=== PATIENT | female | born 1940 | race Caucasian/White ===

== ENCOUNTER 2019-01-30 11:01 | Observation (INO) | payer MEDICARE, OTHER ==
[2019-01-30] MEDS ORDERED: solu-MEDROL 125 MG IV ONE (11:21)
[2019-01-30] MEDS ORDERED: TYLENOL EXTRA STRENGTH 500 MG PO STA (11:21)
--- NOTE | 2019-01-30 11:24 | ERPHSYRPT ---
- History of Present Illness Time Seen by Provider: 01/30/19 11:22 Source: patient Physician History: mild to mod right hip and lower back pain ache constant since tuesday by accident, o/w no injury, no incont, no abdominal pain, no fever Allergies/Adverse Reactions: No Known Drug Allergies Allergy (Verified 01/30/19 11:22) Home Medications: Hydrocodone/APAP 5/500 mg [Vicodin 5/500 MG] 5 mg PO Q4HPRN PRN 03/31/12 [ History] Dorzolamide HCl/Timolol Maleat [Dorzolamide-Timolol Eye Drops] 1 drop OP DAILY 01/30/19 [History] Latanoprost 1 drops OP DAILY 01/30/19 [History] Omeprazole 20 mg PO DAILY 01/30/19 [History] Prednisone 20 mg [Deltasone 20 mg] 20 mg PO DAILY 01/30/19 [History] - Review of Systems Constitutional: No Fever Eyes: No Vision Changes Ears, Nose, & Throat: No Mouth Pain Respiratory: No Dyspnea Cardiac: No Chest Pain Abdominal/Gastrointestinal: No Abdominal Pain Genitourinary Symptoms: No Dysuria, No Incontinence Musculoskeletal: Back Pain, Joint Pain, No Neck Pain Skin: No Skin Lesions Neurological: No Dizziness - Past Medical History Pertinent Past Medical History: Yes Neurological History: No Pertinent History Cardiac History: Hypertension Respiratory History: No Pertinent History Endocrine Medical History: No Pertinent History Musculoskeletal History: Arthritis GI Medical History: GERD Other Medical History: NONE NOTED OTHER THAN OA - Past Surgical History Past Surgical History: Yes Other Surgical History: TONSILECTOMY - Social History Smoking Status: Former smoker Exposure to second hand smoke: No Drug Use: none Patient Lives Alone: No - Nursing Vital Signs Nursing Vital Signs: Initial Vital Signs Temperature 98.4 F 01/30/19 11:10 Pulse Rate 82 01/30/19 11:10 Respiratory Rate 16 01/30/19 11:10 Blood Pressure 156/76 01/30/19 11:10 O2 Sat by Pulse Oximetry 92 L 01/30/19 11:10 Pain Scale Pain Intensity 4 - Physical Exam General Appearance: no apparent distress Eye Exam: eyes nml inspection Neck Exam: normal inspection Respiratory Exam: No respiratory distress Cardiovascular Exam: regular rate/rhythm Gastrointestinal Exam: soft, No tenderness Back Exam: other (tender right hip and paralumbar back, kaur), No vertebral tenderness Extremity Exam: pelvis stable Neurologic Exam: alert, oriented x 3, cooperative Skin Exam: normal color, warm, dry - Course Nursing assessment & vital signs reviewed: Yes - Radiology Exams Hip X-ray Interpretation: Discussed w/ radiologist, No Fracture - CT Exams Lumbar Spine CT Interpretation: Discussed w/radiologist, Other (redemonstates nondispl L4 fx) Ordered Tests: Active Orders 24 hr Category Date Time Status HIP UNI (2V) INCL PEL IF DONE Stat Exams 01/30/19 12:04 Completed LUMBAR SPINE W/O [CT] Stat Exams 01/30/19 11:21 Completed Medication Summary Discontinued Medications Generic Name Dose Route Start Last Admin Trade Name Freq PRN Reason Stop Dose Admin Acetaminophen 500 mg 01/30/19 11:21 01/30/19 12:14 Tylenol Extra Strength 500 Mg PO 01/30/19 11:22 500 mg STAT STA Administration Acetaminophen Confirm 01/30/19 11:40 Tylenol Extra Strength 500 Mg Administered 01/30/19 11:41 Dose 1,000 mg .ROUTE .STK-MED ONE Methylprednisolone Sodium Succinate 125 mg 01/30/19 11:21 01/30/19 12:15 Solu-Medrol 125 Mg IV 01/30/19 11:22 125 mg STAT ONE Administration Methylprednisolone Sodium Succinate Confirm 01/30/19 11:39 Solu-Medrol 125 Mg Administered 01/30/19 11:40 Dose 125 mg .ROUTE .STK-MED ONE - Progress Progress: unchanged Progress Note: 01/30/19 13:01 see your doctor, return if worse, guard against falling, kyphoplasty d/w pt, tylenol, ice - Departure Departure Disposition: Home Clinical Impression: Lumbar vertebral fracture Qualifiers: Encounter type: initial encounter Lumbar vertebra fracture level: L4 Fracture type: closed Fracture morphology: other fracture Qualified Code(s): S32.048A - Other fracture of fourth lumbar vertebra, initial encounter for closed fracture Condition: Stable Critical Care Time: No Referrals: HECTOR PABLO [employer] [Primary Care Provider] -
[2019-01-30] MEDS ORDERED: solu-MEDROL 125 MG ONE (11:39)
[2019-01-30] MEDS ORDERED: TYLENOL EXTRA STRENGTH 500 MG ONE (11:40)
--- NOTE | 2019-01-30 12:20 | XRAY ---
Indication: Low back pain and weakness following twisting injury last week. Multiple contiguous axial images obtained through the lumbar spine. Sagittal and coronal reformatted images obtained. Comparison: None Osseous structures demineralized consistent with patient's age. Remote appearing T12 superior endplate fracture with approximately 50% height loss. There is nondisplaced acute fracture involving the posterior inferior aspect of L4 segment. Mild/moderate multilevel degenerative disc bulge and moderate bilateral degenerative facet hypertrophy, greatest at the L4-L5 level with subsequent spinal canal stenosis and bilateral foraminal narrowing. Sagittal and coronal reformatted images demonstrates normal lumbar lordosis with minimal levoscoliosis centered at L3. L5-S1 disc space loss. No acute compression fracture or subluxation. Visualized noncontrasted soft tissues demonstrates small hiatal hernia, sigmoid diverticulosis, and scattered vascular calcifications. Impression: 1. Nondisplaced L4 posterior inferior acute fracture. Appearance similar to lumbar radiograph one day earlier. 2. Multilevel degenerative disc disease greatest L4-L5 level. 3. Osteopenia, remote T12 endplate fracture, and scoliosis. 4. Incidental small hiatal hernia, sigmoid diverticulosis, and scattered arteriosclerotic disease. CT DI 76.90
--- NOTE | 2019-01-30 12:23 | XRAY ---
Indication: Pain following injury last week. Comparison: October 13, 2016. AP pelvis and 2 views of the right hip again demonstrates osteopenia and scattered vascular calcifications. No other bony, articular, or soft tissue abnormalities. CT lumbar spine reported separately.
[2019-01-30] MEDS ORDERED: TYLENOL 325 MG PO PRN (14:05)
[2019-01-30] MEDS: MORPHINE SULFATE 2 MG INJ IV PRN ×3 (14:38→21:45)
[2019-01-30] MEDS: COSOPT OPHTHALMIC 10 ML OP SCH (16:05)
[2019-01-30] MEDS: Xalatan OP SCH (21:45)
[2019-01-31] MEDS: MORPHINE SULFATE 2 MG INJ IV PRN (06:34)
[2019-01-31] MEDS: COSOPT OPHTHALMIC 10 ML OP SCH ×2 (08:41→17:03)
[2019-01-31] MEDS: Protonix 40MG Tablet PO SCH (09:33)
[2019-01-31] MEDS: DELTASONE 20 MG PO SCH (09:33)
[2019-01-31] MEDS: Colace 100 MG PO SCH ×2 (09:33→21:37)
[2019-01-31] MEDS: Voltaren GEL TOP SCH ×4 (09:33→21:38)
[2019-01-31] MEDS: NORCO 5/325 MG PO PRN ×2 (09:35→17:01)
--- NOTE | 2019-01-31 13:18 | PCM.HP ---
History of Present Illness - Chief Complaint Chief Complaint: INTRACTABLE PAIN History of Present Illness: is a 78 year old female.mild to mod right hip and lower back pain ache constant since twisting Tuesday by accident, o/w no injury, no incont, no abdominal pain, no fever - Review of Systems Constitutional: No Fever, No Chills Eyes: No Symptoms Ears, Nose, & Throat: No Symptoms Respiratory: No Cough, No Short Of Breath Cardiac: No Chest Pain, No Edema, No Syncope Abdominal/Gastrointestinal: No Abdominal Pain, No Nausea, No Vomiting, No Diarrhea Genitourinary Symptoms: No Dysuria Musculoskeletal: No Back Pain, No Neck Pain Skin: No Rash Neurological: No Dizziness, No Focal Weakness, No Sensory Changes Psychological: No Symptoms Endocrine: No Symptoms Hematologic/Lymphatic: No Symptoms Immunological/Allergic: No Symptoms Medications & Allergies Home Medications: Home Medication List Hydrocodone/APAP 5/500 mg [Vicodin 5/500 MG] 5 mg PO Q4HPRN PRN 03/31/12 [ History Confirmed 01/30/19] Dorzolamide HCl/Timolol Maleat [Dorzolamide-Timolol Eye Drops] 1 drop OP 0800, 1500 01/30/19 [History Confirmed 01/30/19] Latanoprost 1 drops OP HS 01/30/19 [History Confirmed 01/30/19] Omeprazole 20 mg PO DAILY 01/30/19 [History Confirmed 01/30/19] Prednisone 20 mg [Deltasone 20 mg] 20 mg PO DAILY 01/30/19 [History Confirmed 01/30/19] Allergies/Adverse Reactions: Allergies Allergy/AdvReac Type Severity Reaction Status Date / Time No Known Drug Allergies Allergy Verified 01/30/19 11:22 - Past Medical History Past Medical History: Yes Neurological History: No Pertinent History Cardiac History: Hypertension Respiratory History: No Pertinent History Endocrine Medical History: No Pertinent History Musculoskelatal History: Arthritis GI Medical History: GERD Comment: NONE NOTED OTHER THAN OA - Female History Are you now?: No - Past Surgical History Past Surgical History: Yes Other Surgical History: TONSILECTOMY - Social History Smoking Status: Never smoker Exposure to second hand smoke: No Alcohol: None Drug Use: none - Physical Exam Vital Signs: Vital Signs - 24 hr Temp Pulse Resp BP Pulse Ox 01/31/19 11:18 97.8 F 66 20 141/61 94 L 01/31/19 07:27 97.8 F 82 20 140/70 95 01/31/19 07:26 97.8 F 01/31/19 04:10 98.4 F 87 18 143/74 93 L 01/30/19 23:39 98.4 F 84 20 138/66 93 L 01/30/19 19:40 97.5 F 78 20 157/67 91 L 01/30/19 14:07 98.3 F 86 18 182/79 94 L 01/30/19 13:52 16 129/62 General Appearance: no apparent distress, alert Neurologic Exam: alert, oriented x 3, cooperative, normal mood/affect, nml cerebellar function, nml station & gait, sensation nml, No motor deficits Eye Exam: PERRL/EOMI, eyes nml inspection Ears, Nose, Throat Exam: normal ENT inspection, TMs normal, pharynx normal, moist mucous membranes Neck Exam: normal inspection, non-tender, supple, full range of motion Respiratory Exam: normal breath sounds, lungs clear, No respiratory distress Cardiovascular Exam: regular rate/rhythm, normal heart sounds, normal peripheral pulses Gastrointestinal/Abdomen Exam: soft, normal bowel sounds, No tenderness, No mass Back Exam: normal inspection, normal range of motion, No CVA tenderness, No vertebral tenderness Extremity Exam: normal inspection, normal range of motion, pelvis stable Skin Exam: normal color, warm, dry, No rash Lymphatic Exam: No adenopathy Results - Radiology Impressions Radiology Exams & Impressions: Radiology Procedures Category Date Time Status HIP UNI (2V) INCL PEL IF DONE Stat Exams 01/30/19 12:04 Completed LUMBAR SPINE W/O [CT] Stat Exams 01/30/19 11:21 Completed Assessment/Plan (1) Lumbar vertebral fracture Current Visit: Yes Status: Acute Qualifiers: Encounter type: initial encounter Lumbar vertebra fracture level: L4 Fracture type: closed Fracture morphology: other fracture Qualified Code(s) : S32.048A - Other fracture of fourth lumbar vertebra, initial encounter for closed fracture
[2019-01-31] MEDS: Xalatan OP SCH (21:38)
[2019-02-01] MEDS: NORCO 5/325 MG PO PRN ×3 (05:39→12:23)
[2019-02-01] MEDS: COSOPT OPHTHALMIC 10 ML OP SCH (09:52)
[2019-02-01] MEDS: Colace 100 MG PO SCH (09:53)
[2019-02-01] MEDS: Voltaren GEL TOP SCH ×2 (09:54→12:23)
[2019-02-01] MEDS: DELTASONE 20 MG PO SCH (09:54)
[2019-02-01] MEDS: Protonix 40MG Tablet PO SCH (09:54)
--- NOTE | 2019-02-01 12:03 | PCM.DS ---
Discharge Summary Date of Admission: 01/30/19 14:06 Admitting Physician: JOEY LERMA Primary Care Provider: HECTOR PABLO NP Allergies Allergies No Known Drug Allergies Allergy (Verified 01/30/19 11:22) Hospital Summary - Hospital Course Hospital Course: Last Vital Signs Temp 98.4 F 02/01/19 08:00 Pulse 73 02/01/19 08:00 Resp 16 02/01/19 08:00 BP 141/76 02/01/19 08:00 Pulse Ox 95 02/01/19 08:00 Allergies No Known Drug Allergies Allergy (Verified 01/30/19 11:22) Active Medications Acetaminophen (Tylenol 325 Mg) 650 mg PO Q4H PRN PRN PRN Reason: PAIN AND/OR FEVER Stop: 03/01/19 14:04 Hydrocodone Bitart/Acetaminophen ([place] 5/325 Mg) 1 tab PO Q6HPRN PRN PRN Reason: PAIN Stop: 02/05/19 09:01 Last Admin: 02/01/19 05:39 Dose: 1 tab Diclofenac Sodium (Voltaren Gel) 2 - 4 gm TOP QID [facility]MIN Stop: 03/02/19 09:59 Last Admin: 02/01/19 09:54 Dose: 2 gm Docusate Sodium (Colace 100 Mg) 100 mg PO BID [facility]MIN Stop: 03/02/19 09:59 Last Admin: 02/01/19 09:53 Dose: 100 mg Dorzolamide/Timolol (Cosopt Ophthalmic 10 Ml) 0 ml OP 0800,1500 [facility] Stop: 03/01/19 15:59 Last Admin: 02/01/19 09:52 Dose: 1 ml Latanoprost (Xalatan) 0 ml OP HS [facility]MIN Stop: 03/01/19 21:59 Last Admin: 01/31/19 21:38 Dose: 1 ml Morphine Sulfate (Morphine Sulfate 2 Mg Inj) 2 mg IV Q4H PRN PRN PRN Reason: PAIN Stop: 02/04/19 14:29 Last Admin: 01/31/19 06:34 Dose: 2 mg Pantoprazole Sodium (Protonix 40mg Tablet) 40 mg PO DAILY [facility] Stop: 03/02/19 09:59 Last Admin: 02/01/19 09:54 Dose: 40 mg Prednisone (Deltasone 20 Mg) 20 mg PO DAILY [facility] Stop: 03/02/19 09:59 Last Admin: 02/01/19 09:54 Dose: 20 mg Intake & Output 01/31/19 02/01/19 11:59 11:59 Intake Total 820 720 Output Total 900 Balance -80 720 Weight 79.8 kg - Vitals & Intake/Output Vital Signs: Vital Signs Temperature 98.4 F 02/01/19 08:00 Pulse Rate 73 02/01/19 08:00 Respiratory Rate 16 02/01/19 08:00 Blood Pressure 141/76 02/01/19 08:00 O2 Sat by Pulse Oximetry 95 02/01/19 08:00 Intake & Output: Intake & Output 01/29/19 01/30/19 01/31/19 02/01/19 11:59 11:59 11:59 11:59 Intake Total 820 720 Output Total 900 Balance -80 720 Weight 79.379 kg 79.8 kg - Radiology Exams Ordered Rad Exams-Entire Visit: Radiology Procedures Category Date Time Status HIP UNI (2V) INCL PEL IF DONE Stat Exams 01/30/19 12:04 Completed LUMBAR SPINE W/O [CT] Stat Exams 01/30/19 11:21 Completed - Procedures and Test Procedures and Tests throughout Hospitalization: Therapy Orders & Screens 01/30/19 14:33 PT Eval & Treat (MD Order) ROUTINE Reason for Eval:: L4 FRACTURE Diagnosis: INTRACTABLE PAIN Discharge Exam General Appearance: no apparent distress, alert Neurologic Exam: alert, oriented x 3, cooperative, normal mood/affect, nml cerebellar function, sensation nml, No motor deficits Skin Exam: normal color, warm, dry Eye Exam: PERRL, EOMI, eyes nml inspection Ears, Nose, Throat Exam: normal ENT inspection, pharynx normal, moist mucous membranes Neck Exam: normal inspection, non-tender, supple, full range of motion Respiratory Exam: normal breath sounds, lungs clear, No respiratory distress Cardiovascular Exam: regular rate/rhythm, normal heart sounds Gastrointestinal/Abdomen Exam: soft, No tenderness, No mass Extremity Exam: normal inspection, normal range of motion Back Exam: normal inspection, normal range of motion, No CVA tenderness, No vertebral tenderness Pelvic Exam: deferred Rectal Exam: deferred Final Diagnosis/Problem List - Final Discharge Diagnosis/Problem (1) Lumbar vertebral fracture Current Visit: Yes Status: Acute Assessment & Plan: Last Vital Signs Temp 98.4 F 02/01/19 08:00 Pulse 73 02/01/19 08:00 Resp 16 02/01/19 08:00 BP 141/76 02/01/19 08:00 Pulse Ox 95 02/01/19 08:00 Allergies No Known Drug Allergies Allergy (Verified 01/30/19 11:22) Active Medications Acetaminophen (Tylenol 325 Mg) 650 mg PO Q4H PRN PRN PRN Reason: PAIN AND/OR FEVER Stop: 03/01/19 14:04 Hydrocodone Bitart/Acetaminophen ([place] 5/325 Mg) 1 tab PO Q6HPRN PRN PRN Reason: PAIN Stop: 02/05/19 09:01 Last Admin: 02/01/19 05:39 Dose: 1 tab Diclofenac Sodium (Voltaren Gel) 2 - 4 gm TOP QID [facility] Stop: 03/02/19 09:59 Last Admin: 02/01/19 09:54 Dose: 2 gm Docusate Sodium (Colace 100 Mg) 100 mg PO BID [facility] Stop: 03/02/19 09:59 Last Admin: 02/01/19 09:53 Dose: 100 mg Dorzolamide/Timolol (Cosopt Ophthalmic 10 Ml) 0 ml OP 0800,1500 [facility] Stop: 03/01/19 15:59 Last Admin: 02/01/19 09:52 Dose: 1 ml Latanoprost (Xalatan) 0 ml OP HS [facility] Stop: 03/01/19 21:59 Last Admin: 01/31/19 21:38 Dose: 1 ml Morphine Sulfate (Morphine Sulfate 2 Mg Inj) 2 mg IV Q4H PRN PRN PRN Reason: PAIN Stop: 02/04/19 14:29 Last Admin: 01/31/19 06:34 Dose: 2 mg Pantoprazole Sodium (Protonix 40mg Tablet) 40 mg PO DAILY [facility] Stop: 03/02/19 09:59 Last Admin: 02/01/19 09:54 Dose: 40 mg Prednisone (Deltasone 20 Mg) 20 mg PO DAILY [facility] Stop: 03/02/19 09:59 Last Admin: 02/01/19 09:54 Dose: 20 mg Intake & Output 02/01/19 02/02/19 11:59 11:59 Intake Total 720 Balance 720 (2) Osteoporosis Current Visit: Yes Status: Acute Priority: Medium Assessment & Plan: wilss start miacalcin nasal spray Code(s): M81.0 - AGE-RELATED OSTEOPOROSIS W/O CURRENT PATHOLOGICAL FRACTURE - Discharge Discharge Date: 02/01/19 Disposition: HOME HEALTH SERVICE Condition: Stable Prescriptions: New Calcitonin,[place],Synthetic [Miacalcin] 3.7 ml NS PC 30 Days #30 spray.pump Hydrocodone/APAP 5-325 Tab^^^ [[place] 5-325 Tablet^^^] 1 tab PO Q6HPRN PRN # 30 tablet MDD 6 PRN Reason: Pain Continue Hydrocodone/APAP 5/500 mg [Vicodin 5/500 MG] 5 mg PO Q4HPRN PRN PRN Reason: Pain Prednisone 20 mg [Deltasone 20 mg] 20 mg PO DAILY Omeprazole 20 mg PO DAILY Latanoprost 1 drops OP HS Dorzolamide HCl/Timolol Maleat [Dorzolamide-Timolol Eye Drops] 1 drop OP 0800 ,1500 Additional Instructions: [facility] WILL CALL YOU TO ARRANGE YOUR FIRST VISIT. Follow up with: HECTOR PABLO NP [Primary Care Provider] - 1 Week
[2019-02-01 12:51] VITALS: BP 137/65; PULSE 84; O2SAT 96
== END 2019-02-01 13:00 | disposition home health service (06) ==
LOC: ED 11:01 → MED SURG 14:06
PROVIDERS: ADMIT General Practice; ATTEND General Practice
DX: S32.049A Unspecified fracture of fourth lumbar vertebra, initial encounter for closed fracture (principal); M81.0 Age-related osteoporosis without current pathological fracture; Z79.899 Other long term (current) drug therapy
CPT/HCPCS: 36000; 72131; 73502; 96374; 97161; 97530; 99285; G0378; J2270; J2930; L0625; A9270-GY